=== PATIENT | female | born 1960 | race Hispanic/Latino ===

== ENCOUNTER 2022-02-08 08:29 | Outpatient (CLI) | payer OTHER | END 2022-02-08 08:30 | disposition home or self-care (01) | LOC: CSHULT 08:29 | PROVIDERS: ATTEND Student in an Organized Health Care Education/Training Program | DX: R10.31 Right lower quadrant pain (principal); R10.32 Left lower quadrant pain; G89.29 Other chronic pain | CPT/HCPCS: 76856 ==

== ENCOUNTER 2022-07-23 08:09 | Outpatient (CLI) | payer OTHER, BC | END 2022-07-23 08:10 | disposition home or self-care (01) | LOC: CSHMAMMO 08:09 | PROVIDERS: ATTEND Student in an Organized Health Care Education/Training Program | DX: Z12.31 Encounter for screening mammogram for malignant neoplasm of breast (principal) | CPT/HCPCS: 77063; 77067 ==